=== PATIENT | male | born 1950 | race Caucasian/White ===

== ENCOUNTER 2018-09-02 08:04 | Day surgery (SDC) | payer OTHER ==
[2018-08-13 08:23] VITALS: BMI 23.6
[~2018-09-02 08:04] MED LIST: LACTATED RINGERS 1,000 ML IV SCH; LIDOCAINE 1% 20 ML VIAL (10MG/ML) FOR IV START INTRADERMA PRN
[2018-09-02 09:06] VITALS: TEMP 97
[2018-09-02] MEDS ORDERED: PROPOFOL 10 MG/ML 20 ML VIAL IV ONE (09:57)
[2018-09-02 10:33] VITALS: BP 97/65; PULSE 58; RESP 16
--- NOTE | 2018-09-02 10:36 | P.PCN ---
Date of Procedure: 09/02/18 Procedure(s) Performed: Procedure: Total colonoscopy with polypectomy. Preoperative diagnosis: History of polyps for screening for neoplasia. Postoperative diagnosis: 1. Diverticulosis with no evidence of acute diverticulitis or strictures. 2. Small rectal polyp snared. 3. Low-grade internal hemorrhoids not bleeding at the time of this exam. Preparation: HalfLytely prep. Sedation: Was provided by anesthesia. Brief clinical history: The patient is a 68-year-old male who is scheduled for this evaluation for screening for neoplasia because of history of polyps. His last exam was around 5 years ago. The patient has no abdominal complaints, bleeding or anemia. Procedure: With the patient on his left lateral decubitus position and after informed consent and adequate sedation, the perianal area was inspected and it did not show any fissures or fistulas. There were no masses felt on digital re ctal examination. The Olympus CFH 190L video colonoscope was then inserted in the rectum in the usual fashion and advanced to the cecum. There was a small polyps in the rectum whiuch I snared and retrieved by suction but no large polyps or cancer. Multiple diverticular orifices were seen scattered in the sigmoid and left side and occasional orifice on the right side with no evidence of acute colitis or strictures. The mucosa appeared healthy. I retroflexed the endoscope in the rectum before the endoscope was withdrawn. Low-grade internal hemorrhoids were noted with no evidence of bleeding. The patient tolerated the procedure well. Plan: The patient was reassured. Discussed dietary measures. He will follow up with you as planned and I recommended repeat exam in 5 years.
== END 2018-09-02 11:02 | disposition home or self-care (01) ==
LOC: ORWHC2ENDO 08:04
DX: Z12.11 Encounter for screening for malignant neoplasm of colon (principal); D36.9 Benign neoplasm, unspecified site; K57.30 Diverticulosis of large intestine without perforation or abscess without bleeding; K64.8 Other hemorrhoids; I25.10 Atherosclerotic heart disease of native coronary artery without angina pectoris; I10 Essential (primary) hypertension; J44.9 Chronic obstructive pulmonary disease, unspecified; E78.5 Hyperlipidemia, unspecified; I71.9 Aortic aneurysm of unspecified site, without rupture; Z95.5 Presence of coronary angioplasty implant and graft; F17.200 Nicotine dependence, unspecified, uncomplicated; E07.9 Disorder of thyroid, unspecified; F43.10 Post-traumatic stress disorder, unspecified; Z79.82 Long term (current) use of aspirin; Z79.890 Hormone replacement therapy; Z79.51 Long term (current) use of inhaled steroids; Z79.899 Other long term (current) drug therapy; Z88.0 Allergy status to penicillin; Z91.013 Allergy to seafood
CPT/HCPCS: 88305; 45385; J2704

== ENCOUNTER → 2022-01-15 | Outpatient (CLI) | payer OTHER ==
--- NOTE | 2022-01-16 18:07 | MR ---
EXAMINATION TYPE: MR cspine/lspine wo con DATE OF EXAM: 01/15/2022 COMPARISON: None HISTORY: Neck and lower back pain, BUE/BLE radiculopathy. Hx lumbar surgery. CONTRAST: No contrast TECHNIQUE: Multiplanar multiecho imaging on a 3.0 Juliet magnet is performed through the cervical spin e. FINDINGS: The craniovertebral junction is normal. Vertebral body alignment is normal. C7-T1: No focal disc herniation or significant disc bulge is evident. No spinal canal stenosis or n eural foraminal stenosis is present. C6-7: No focal disc herniation or significant disc bulge is evident. No spinal canal stenosis or conrad ral foraminal stenosis is present. C5-6: No focal disc herniation or significant disc bulge is evident. No spinal canal stenosis or conrad ral foraminal stenosis is present. C4-5: Mild disc bulge is present with anterior thecal sac flattening. No cord contact. No spinal xiomara l stenosis. Uncovertebral joint hypertrophy is moderate bilateral foraminal stenosis.. C3-4: Mild disc bulges anterior thecal sac flattening. No AP spinal canal stenosis. Mild uncovertebra l joint hypertrophy and facet hypertrophy is present contributing to foraminal narrowing.. C2-3: There is a right paracentral focal protrusion with moderate intrathecal sac compression. 6 core deformity is evident although cord contact this time is not identified. Mild spinal canal stenosis i s present posterior to the disc protrusion. The neural foramen are patent.. IMPRESSIONS: 1. Right paracentral focal protrusion C2-3 with moderate anterior thecal sac compression and cord def ormity with mild spinal canal stenosis. 2. Mild disc bulging L3-4 and L4-5 with anterior thecal sac flattening. No stenosis. EXAMINATION TYPE: MR cspine/lspine wo con DATE OF EXAM: 01/15/2022 COMPARISON: None HISTORY: Neck and lower back pain, BUE/BLE radiculopathy. Hx lumbar surgery. CONTRAST: 0 mL intravenous Gadavist. TECHNIQUE: Multiplanar, multisequence images of the lumbar spine were acquired. FINDINGS: L5-S1: Right hemilaminectomy appears to be present. No spinal canal stenosis is present. There is francy e right paracentral disc protrusion and severe right and moderate left foraminal stenosis. Correlate with right S1 radicular symptoms. L4-L5: No significant disc bulge or disc herniation. No spinal canal stenosis. Right L4-5 foraminal stenosis. Mild posterior disc space narrowing is present.. L3-L4: Based disc bulge has mild anterior thecal sac impression. No AP spinal canal stenosis is prese nt. Mild bilateral foraminal narrowing is present. No spinal canal stenosis. No foraminal stenosis. . L2-L3: Mild broad-based disc bulge is present on the anterior thecal sac contact. No AP spinal canal stenosis is present. Neural foramen are patent. L1-L2: No significant disc bulge or disc herniation. No spinal canal stenosis. No foraminal stenosi s. T12-L1: No significant disc bulge or disc herniation. No spinal canal stenosis. No foraminal stenos is. Cord terminates at the L1 vertebral body level. IMPRESSION: 1. Severe bilateral foraminal stenosis at L5-S1 greater on the right. Severe right foraminal stenosis also present at L4-5. 2. Right paracentral asymmetric disc bulging at L5-S1. Correlate with right S1 radicular symptoms. 3. Mild broad-based disc bulge L3-4 L4-5 with intrathecal sac flattening.
== END | disposition home or self-care (01) ==
LOC: RADMRIMAIN 12-23 13:33
PROVIDERS: ATTEND Physician Assistant Medical
DX: M48.02 Spinal stenosis, cervical region (principal); M51.36 Other intervertebral disc degeneration, lumbar region
CPT/HCPCS: 72141; 72148